=== PATIENT | female | born 1975 | race Caucasian/White ===

== ENCOUNTER 2016-09-28 02:26 | Inpatient (IN) | payer OTHER ==
[~2016-09-28] VITALS: Ht 167.6 cm; Wt 61.2 kg
[~2016-09-28 02:26] MED LIST: CYCLOBENZAPRINE10 M1; NEURONTIN300 M1 PO; TRAMADOL HCL50 M1 PO; VICODIN 5-3001 EACH PO
--- NOTE | 2016-09-28 08:05 | Operative Report ---
Operative/Inv Procedure Report Surgery Date: 09/28/16 Name of Procedure: C5/6, C6/7 ACDF with Medtronic Peek cage, antlantis elite plate/screws, DBM, local autograft, expanse Pre-Operative Diagnosis: C5/6, C6/7 HNP with stenosis Post-Operative Diagnosis: same Estimated Blood Loss: less than 50ml Surgeon/Instrument Adjuster: JEOVANY ANGEL,Octavio Felix MD Anesthesia: general endotracheal tube Monitors: neurophysiologic monitoring IV Fluids: replaced with crystalloid Implants: medtronic Urine Output: via almaraz Drains: med SAMMY Specimens: C5/6, C6/7 disc material Condition: stable Operative Indication: 41 yo with severe ongoing neck and left arm pain with parasthesias despite prolonged conservative treatement including Nsaids, oral and epidural steroids, PT etc.. MRI and CT with C5/6 and C6/7 disc/osteophyte complexes and superimposed left C6/7 HNP with severe left neural impingment juan miguel of the C7 root. In light of failed nonoperative treatment, pt now presents for surgical decompression and fusion. Operative/Procedure Note Note: Pt taken to the OR and after appropriate pt identification and surgical time out , the pt underwent smooth induction of GET without incident. With tube secured, neurosphysiologic monitoring leads, almaarz catheter and DVT prophylaxis placed. Baseline recordings obtained. Pt was positioned supine with neck gently extended on donut and shoulders retracted down. All pressure pts well padded and monitoring stable after positioning. Pt given preop antibiotics and decadron 10mg. C-arm brought in and correct levels localized. The neck then widely prepped and draped steriley and a transverse linear incision marked on left side in pre-existing crease and infiltrated with local. C-arm sterilely draped into the field. Skin incision made with 10 blade knife. Platysma identfied, undermined and divided with bovey and subplatysma planes developed. Medial sternocleidomastoid muscle identified, fascia incised, and dissection carried out with digital and sharp dissection medial to sternocleidomastoid and lateral to trachea and esophagus down to pervertebral fascia. Carotid sheath identified and protected laterally under handheld retracter. Prevertebral fascia reflected with a peanut and operative disc spaces localized with the c-arm and marked with bovey. Annulotomy made at both C5/6 and C6/7 with 15 blade and superficial discectomy done with currettes and pituitary rongeurs. Operating microscope then steriley draped and brought into field and remainder done under high power visualization. Kaspar retractors were placed and gently distraction placed across the interspaces. Discectomy was completed down to posterior longitudinal ligament which was elevated and sequentially resected at both levels. End plate osteophytes at canal thinned with drill and resected with 1 and 2mm kerrison punches and bone saved for fusion. At C6/7, a left disc herniation extending to neuroforamen encountered and resected until excellent decompression of dura and exiting roots accomplished at both levels. CSF pulsations were noted at both levels. Endplates at both levels were contoured and prepared for arthrodesis and all cartilaginous tissue removed. After appropriate trials, a [id number] anatomic PEEK cage was filled with autograft from osteophytectomy, expanse, and DBM and gently tamped into C5/6 and [id number] mm cage similarly into C6/7 and cages countersunk by 1-2mm under direct and fluroscopic guidance and position of the cages confirmed and noted to be excellent. Kaspar retracters removed and cages compressed between verterbral bodies. The ventral aspect of vertebral bodies then contoured with drill to facilitate the anterior plate placement. A 40mm 6 hole medtronic atlantis elite plate selected and provisionally placed. Its position was confirmed and then afixed to vertebral bodies with a series of 2 screws into each of C5, C6, and C7. Each screw placed by piercing the bone with awl and placing self drilling self tapping screws with trajectory slightly medial. Once all screws in position, they were confirmed with C-arm and then finally tightened deploying the locking mechanism at each location. Final AP and lateral xrays obtained and saved. Monitoring was stable and wound closure started. Wound was copiously irrigated. Meticulous hemostasis obtained. A med SAMMY was placed into the wound and secured to skin with 2-0 nylong suture. The platysma reapproximated with 3-0 vicryl suture. SKin closed in layers with 3-0 vicryl in dermis and 4-0 vicryl subcuticular to close skin. Wound was cleaned and dried and sterile occlusive dressing placed. Pt placed in soft collar, awakened, extubated and taken to PACU stable. Neurophysioloic monitoring stable. All sponge, needle and instrument counts correct X3 at completion of the case. Findings: L C6/7 HNP with C7 nerve root impingment C5/6 stenosis due to disc/osteophyte complex Discharge Disposition: PACU
--- NOTE | 2016-09-28 14:59 | Operative Report ---
Operative/Inv Procedure Report Surgery Date: 09/28/16 Name of Procedure: C5 6 and C6 7 anterior cervical discectomy and fusion use of peDealAngel intervertebral biomechanical device 2 use of anterior structural plating system [employer]ets [employer], use of autograft use of allograft. Fluoroscopic guidance, microsurgical surgical techniques
--- NOTE | 2016-09-28 16:08 | RADIOLOGY REPORT ---
EXAMINATION: XR CERVICAL SPINE CLINICAL INFORMATION: Anterior cervical spine decompression and fusion C5-C6 through C6-C7. COMPARISON: Cervical spine films dated 09/07/2016. TECHNIQUE: Fluoroscopic equipment was dedicated to the operating room for the performance of an anterior spinal decompression and fusion. FLUOROSCOPY TIME: 0.2 minutes. FINDINGS: 2 spot films demonstrate an anterior cervical spine fusion plate extending from C5 through C7 with intervertebral disc spacers. Alignment on the images provided is anatomic. IMPRESSION: Anatomic alignment status post anterior spinal decompression and fusion C5-C7.
[2016-09-28 18:00] VITALS: BP 130/67
--- NOTE | 2016-09-28 18:38 | PN- Orthopedic ---
Subjective Subjective: Postop check postop day 0. Patient to floor from the PACU, she is comfortable, in mild to moderate pain in the posterior neck region. He is being controlled with pain medication. She is slightly drowsy. She denies any numbness or weakness in the extremities. She is currently eating dinner, has decreased appetite Objective Vital Signs and I&Os vss Physical Exam: Well-developed well-nourished no apparent distress. Appears slightly drowsy. HEENT: Atraumatic, extraocular motion intact Neck: Supple, anterior dressing dry. C-collar in place. SAMMY drain output approximately 20 mL of thin bloody fluid. Respiratory: No respiratory distress Extremities: No edema, sensation and motor grossly intact Neuro: Alert and oriented x3 Psych: Mildly drowsy, normal memory normal judgment. Skin: Warm and dry, no rash on exposed skin Assessment/Plan Assessment/Plan Postop day 0 status post C5/6, C6/7 ACDF with Medtronic Peek cage, antlantis elite plate/screws, DBM, local autograft, expanse secondary to C5/6, C6/7 HNP with stenosis -Percocet for pain, Dilaudid IV for severe pain -ancef for infectious prophylaxis -Regular diet -Continue neuro checks -SAMMY drain to bulb self suction -Venous thromboembolic devices to lower extremities -Out of bed as tolerated -Plan for discharge tomorrow Core Measures/Miscellaneous Venous Thromboembolism VTE Risk Factors: Age > 40, Surgery VTE Contraindications: No Contraindications VTE Diagnosis: No Beta Olivia Is Beta Olivia a Home Med? No Antibiotics Is Patient on Antibiotics? Yes If Yes: prophylaxis
--- NOTE | 2016-09-28 18:52 | Patient Discharge Instructions ---
Discharge Instructions General Discharge Information You were seen/treated for: Pre-Operative Diagnosis: C5/6, C6/7 HNP with stenosis You had these procedures: C5/6, C6/7 ACDF with Medtronic Peek cage, antlantis elite plate/screws, DBM, local autograft, expanse Special Instructions: Stay in cervical collar. Keep dressing clean and dry. Take pain medication and spasm medication as needed Watch for any signs of infection such as fever greater than 101, worsening pain, spreading redness or flulike illness, call with any concerns. Watch for any signs of neurologic compromise such as weakness or numbness in the extremities or loss of function. Diet Continue normal diet: Yes Recommended Diet: Regular Activity Full Activity/No Limits: No Pounds, do NOT lift more than: 5 Additional ACTIVITY Info: Stay in cervical collar. No excessive physical activity. Acute Coronary Syndrome Inclusion Criteria At DC or during hospital stay patient has or had the following: ACS DIAGNOSIS No Discharge Core Measures Meds if any: Prescribed or Continued at Discharge Meds if any: NOT Prescribed or Continued at Discharge Congestive Heart Failure Inclusion Criteria At DC or during hospital stay patient has or had the following: CHF DIAGNOSIS No Discharge Core Measures Meds if any: Prescribed or Continued at Discharge Meds if any: NOT Prescribed or Continued at Discharge Cerebrovascular accident Inclusion Criteria At DC or during hospital stay patient has or had the following: CVA/TIA Diagnosis No Discharge Core Measures Meds if any: Prescribed or Continued at Discharge Meds if any: NOT Prescribed or Continued at Discharge Venous thromboembolism Inclusion Criteria VTE Diagnosis No VTE Type NONE VTE Confirmed by (Test) NONE Discharge Core Measures - Per Current guidelines, there needs to be overlap - treatment for the first 5 days of Warfarin therapy. - If discharged on Warfarin prior to 5 days of - overlap therapy, the patient will need to be - assessed for post discharge needs including - *Post discharge parental anticoagulation - *Warfarin and/or parental anticoagulation education - *Follow up date to check INR post discharge At least 5 days overlap therapy as Inpatient No Meds if any: Prescribed or Continued at Discharge Note: Overlap Therapy is Warfarin and Anticoagulant Meds if any: NOT Prescribed or Continued at Discharge
--- NOTE | 2016-09-28 18:55 | Surgical Discharge Summary ---
Visit Information Visit Dates Admission Date: 09/28/16 Discharge Date: 09/29/16 History of Present Illness Chief Complaint: neck pain and radicular symptoms secondary to left side herniated disc C5/6, C6/ 7 Medical History Isolation History: Standard Surgical History Pertinent Surgical History: none (see H&p) Psychosocial History What is Your Primary Language? Guamanian Review of Systems: see h&p Hospital Course Course Attending Physician: JEOVANY ANGEL,LYNDA Glaser Primary Care Physician: WILMER LAGOS MD Hospital Course: Patient underwent a C5/6, C6/7 ACDF with Medtronic Peek cage, antlantis elite plate/screws, DBM, local autograft, expanse. She tolerated the procedure well without complications. Postoperatively her pain was controlled. She had neuro checks every hour without any new or worsening deficits. She received Ancef for infectious prophylaxis. She was maintained in a cervical collar. She had a SAMMY drain. Her postoperative course was unremarkable and she was discharged home on postop day 1. Complications: None Allergies: Coded Allergies: No Known Allergies (07/21/16) Disposition Summary Disposition Principal Diagnosis: C5/6, C6/7 left-sided disc herniation Additional Diagnosis: Status post anterior cervical neck dissection and cervical fusion C5-C6 C6-C7 Discharge Disposition: home or self care Discharge Instructions General Discharge Information Code Status: Full Code Patient's Diet: Regular Patient's Activity: No lifting greater than 5 pounds. Soft cervical collar while in bed. Pain medication and antispasm medication as needed Follow-Up Instructions/Appts: Follow-up with Dr. García in 2 weeks Medications at Discharge Discharge Medications: Stop taking the following medications: Tramadol HCl (Tramadol HCl) 50 MG TABLET ORAL EVERY SIX HOURS NEEDED as needed for PAIN Hydrocodone/Acetaminophen (Vicodin 5-300 MG Tablet) 5 MG-300 MG TABLET ORAL EVERY 4-6 HOURS as needed for PAIN Cyclobenzaprine HCl (Cyclobenzaprine HCl) 10 MG TABLET Continue taking these medications: Gabapentin (Neurontin) 300 MG CAPSULE 1 Tablet ORAL TWICE DAILY Comments: NOT GIVEN IN HOSPITAL Start taking the following new medications: Diazepam (Valium) 10 MG TABLET 5 Milligram ORAL EVERY 8 HOURS NEEDED as needed for SPASMS Qty = 20 No Refills Instructions: alternate / stagger with pain medication Comments: NOT GIVEN IN HOSPITAL Docusate Sodium (Docusate Sodium) 100 MG CAPSULE 100 Milligram ORAL TWICE DAILY as needed for CONSTIPATION Days = 14 No Refills Instructions: stool softener available over the counter. take as needed. Comments: Last Taken: 09/29/16 Time: 10:00 AM Hydrocodone/Acetaminophen (Hudson 5-325 Tablet) 5 MG-325 MG TABLET 1-2 Tablet ORAL EVERY 4-6 HOURS NEEDED as needed for pain control Qty = 50 No Refills Instructions: take as directed for pain control. do not combine with tylenol. Comments: NOT GIVENIN HOSPTIAL Copies To: DEMOND ANGEL,WILMER Pittman
[2016-09-28 20:12] VITALS: BP 137/77
[2016-09-28 22:00] VITALS: BP 130/60
[2016-09-29 00:36] VITALS: BP 128/62
[2016-09-29 05:01] VITALS: BP 130/65
[2016-09-29] MEDS ORDERED: NORCO 5-325 TA1 EACH PO (09:19)
[2016-09-29] MEDS ORDERED: DOCUSATE SODIU100 M3 PO (09:19)
[2016-09-29] MEDS ORDERED: VALIUM10 M1 PO (09:19)
[2016-09-29 10:00] VITALS: BP 124/62
--- NOTE | 2016-09-29 12:26 | PN- Neurosurgical ---
Subjective Subjective: doing well, sore throat Objective Vital Signs and I&Os Vital Signs Date Time Temp Pulse Resp B/P Pulse O2 O2 Flow FiO2 Ox Delivery Rate 09/29 06 96 Room Air 09/29 0501 97.7 75 18 130/65 98 Room Air 09/29 0036 97.5 71 18 128/62 99 Room Air 09/280 96 Room Air 09/28 2199 96.5 85 18 130/60 96 Room Air 09/29 2131 Room Air 09/29 2011 97.6 78 18 137/77 98 Room Air 09/28 1957 96 Nasal 2.0L Cannula 09/28 1800 98.7 85 20 130/67 96 Nasal 2.0L Cannula 09/28 170 96 Nasal 2.0L Cannula 09/28 170 96 Nasal 2.0L Cannula Intake & Output 09/29 1600 09/29 0809/29 0000 09/28 1600 09/28 0809/28 0000 Intake Total 1280 480 Output Total 420 200 Balance 860 280 Intake, IV 800 240 Intake, Oral 480 240 Output, 20 Drainage Output, Urine 400 200 Patient 61.235 kg Weight Physical Exam: AF, VS neuro normal voice clear, swallow intact baldomero po ambulating, voiding neck soft, incision c,d,i flat Current Medications: Current Medications Sig/Anna Start time Last Medication Dose Route Stop Time Status Admin Acetaminophen 650 MG Q4P PRN 09/29 1599 AC PO Acetaminophen 1,000 MG .STK-MED ONE 09/28 1540 DC IV 09/28 1541 Acetaminophen/ 15 ML Q4-6 PRN PRN 09/29 0815 AC 09/29 Hydrocodone Bitart PO 1002 Acetaminophen/ 30 ML Q6-PRN PRN 09/29 0915 AC Hydrocodone Bitart PO Benzocaine/Menthol 1 ASH Q2P PRN 09/29 0815 AC PO Bisacodyl 10 MG DAILY NEEDED PRN 09/28 1600 AC OR Cefazolin Sodium 2 GM ONCE 09/28 0000 DC N/A 1 UNIT IV 09/28 2359 Diazepam 5 MG Q8P PRN 09/28 1600 AC PO Docusate Sodium 100 MG BID 09/28 2200 AC 09/29 PO 1002 Hydromorphone HCl 1 MG Q4P PRN 09/28 1600 DC 09/29 IV 0539 Meperidine HCl 50 MG .STK-MED ONE 09/28 1544 DC IM 09/28 1545 Ondansetron HCl 4 MG Q6P PRN 09/28 1600 AC IV Oxycodone/ 1 TAB Q4P PRN 09/28 1845 DC Acetaminophen PO Oxycodone/ 2 TAB Q4P PRN 09/28 1600 DC Acetaminophen PO Remifentanil 5 MG .STK-MED ONE 09/28 1404 DC IV 09/28 1405 Sodium Chloride 1,000 ML .[id number] 09/28 1615 DC 09/29 IV 09/29 1714 0539 Trimethobenzamide HCl 200 MG Q6P PRN 09/28 1600 AC IM Zolpidem Tartrate 2.5 MG AT BEDTIME NEED.. 09/28 1600 AC PO Results Last 48 Hours of Labs: Laboratory Tests 09/28 1030 Urines Urine Test NEGATIVE Assessment/Plan Assessment/Plan Pt POD1 s/p 2 level ACDF C5/6, C6/7 and doing well. Dc drain if less than 20cc next shift ok to dc home dc instructions given fu with me 2 wks collar at all times Core Measures/Miscellaneous Venous Thromboembolism VTE Risk Factors: Age > 40, Surgery VTE Contraindications: No Contraindications VTE Diagnosis: No Beta Olivia Is Beta Olivia a Home Med? No Antibiotics Is Patient on Antibiotics? Yes If Yes: prophylaxis Attending MD Review Statement Attending Statement Attending MD Statement: examined this patient, discuss w/resident/PA/LADLE BUILDER, discussed w/nursing
== END 2016-09-29 14:20 | DRG 473 ==
LOC: ENRESERVDT → ENRESERVTM → SDA 02:26 → 2NB 16:48
PROVIDERS: ADMIT Neurological Surgery
PROC: 4A11X4G Monitoring of Peripheral Nervous Electrical Activity, Intraoperative, External Approach (ICD-10-PCS; principal; 2016-09-28)
PROC: 0RT30ZZ Resection of Cervical Vertebral Disc, Open Approach (ICD-10-PCS; principal; 2016-09-28)
PROC: 0RG20A0 Fusion of 2 or more Cervical Vertebral Joints with Interbody Fusion Device, Anterior Approach, Anterior Column, Open Approach (ICD-10-PCS; principal; 2016-09-28)
DX: M50.123 Cervical disc disorder at C6-C7 level with radiculopathy (principal); R20.8 Other disturbances of skin sensation
CPT/HCPCS: 2NBSP; 72040; 81025; 88304; C1713; J0131; J0690; J2405; J3250